=== PATIENT | female | born 1965 | race Caucasian/White ===

== ENCOUNTER 2022-05-03 14:23 | Emergency (ER) | payer MEDICARE, MEDICAID ==
[2022-05-03 16:08] LABS: ESTIMATED GFR > 60 (>60)
== END 2022-05-03 16:42 | disposition home or self-care (01) ==
LOC: JP.ED 14:23
DX: R10.30 Lower abdominal pain, unspecified (principal); Z88.1 Allergy status to other antibiotic agents; Z88.2 Allergy status to sulfonamides
CPT/HCPCS: 36415; 80053; 81001; 84484; 85025; 93005; 93010; 99282; 99284